=== PATIENT | female | born 1955 | race American Indian/Alaskan Native ===

== ENCOUNTER 2022-10-18 07:28 | Emergency (ER) | payer OTHER ==
[~2022-10-18] VITALS: Ht 162.6 cm; Wt 77.1 kg
[2022-10-18] MEDS ORDERED: CALAMINE LOTIO177 M1 TOP (07:58)
[2022-10-18] MEDS ORDERED: PREDNISONE20 MG PO (07:58)
[2022-10-18] MEDS ORDERED: HYDROXYZINE HCL25 MG PO (07:58)
[2022-10-18 08:07] VITALS: BP 166/103
--- OUTSIDE RECORDS SUMMARY | 2022-10-18 08:10 | XMS ---
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 Baltazar has no Care Guidelines for this patient. Neil [facility] (12 MO.) [facility] [address] [facility] TOTAL 8 NOTE: Visits indicate total known visits. ED/C VISIT TRACKING (12 MO.) [facility]22 07[facility] COMPLAINT: - SKIN PROBLEM 09/23/2022 01:05 [facility] DIAGNOSES: - Cellulitis of head [any part, except face] 09/02/2022 00:55 [facility] DIAGNOSES: - Dermatitis, unspecified - Rash - rash all over body 06/23/2022 12:26 [facility] DIAGNOSES: - Psoriasis, unspecified - Tinea corporis - rash on legs and arms - Skin Problem 03/04/2022 23:36 [facility] DIAGNOSES: - Pruritus, unspecified - rt foot swelling bug bites 03/03/2022 08:25 [facility] Alfredo HERNANDEZ TYPE: Emergency DIAGNOSES: - Procedure and treatment not carried out due to patient leaving prior to being seen by health care provider - nicki bites - LWBS 01/12/2022 21:38 [facility] Alfredo HERNANDEZ TYPE: Emergency DIAGNOSES: - Pruritus, unspecified - Rash and other nonspecific skin eruption - rash 12/24/2021 16:45 [facility] Alfredo HERNANDEZ TYPE: Emergency DIAGNOSES: - Acute upper respiratory infection, unspecified - Chronic sinusitis, unspecified - congestion - Cough - Nasal Congestion INPATIENT VISIT TRACKING (12 MO.) No inpatient visits to display in this time frame [email or web address]
== END 2022-10-18 08:08 | disposition home or self-care (01) ==
LOC: ED 07:28
DX: L30.9 Dermatitis, unspecified (principal); Z88.1 Allergy status to other antibiotic agents; Z88.2 Allergy status to sulfonamides; Z91.030 Bee allergy status
CPT/HCPCS: 99282; J7512